=== PATIENT | female | born 1955 ===

== ENCOUNTER 2017-12-25 08:00 | Day surgery (SDC) | payer OTHER ==
[~2017-12-25 08:00] MED LIST: DICLOFENAC POTA50 MG; NEURONTIN800 MG; OMEPRAZOLE40 MG; SIMVASTATIN40 MG
[2017-12-25] MEDS ORDERED: MACROBID 100 M100 MG PO (11:12)
[2017-12-25] MEDS ORDERED: ULTRACET PO (11:13)
== END 2017-12-25 14:15 | disposition home or self-care (01) ==
LOC: CIR.AMB 08:00
DX: N39.3 Stress incontinence (female) (male) (principal)
CPT/HCPCS: 57288; C1771